=== PATIENT | female | born 1970 | race African-American/Black ===

== ENCOUNTER 2020-09-15 08:28 | Outpatient (CLI) | payer OTHER, SELFPAY ==
--- NOTE | ~2020-09-15 | CT_ITS ---
EXAMINATION: CT sinus wo con EXAM DATE: 09/15/2020 08:50 INDICATION: J32.9 - Chronic sinusitis, unspecified. Cough. TECHNIQUE: Spiral CT of the sinuses was acquired in the axial plane. Coronal and sagittal reformatte d images were also reviewed. The dose-length product (DLP) for this examination was 293.24 mGy-cm. Iterative reconstruction (ASIR) was used as dose reduction technique. There is no prior study for co mparison. FINDINGS: There are bilateral maxillary sinus window procedures and also probably middle turbinate r esections. Moderate bilateral ethmoid mucoperiosteal thickening, minimal in the right maxillary sin us inferiorly. There is bilateral maxillary and sphenoid sinus wall thickening indicating a prior hi story of chronic sinusitis. No air-fluid levels. There is mild rightward nasal septal deviation. Th e mastoid air cells and middle ears are well aerated. External auditory canals are patent. The or bits and visualized soft tissues are unremarkable. IMPRESSION: 1. Moderate ethmoid, minimal right maxillary nuchal periosteal thickening. 2. Patent maxillary sinus windows. Reviewed, dictated and finalized at location B.
== END 2020-09-15 08:29 | disposition home or self-care (01) ==
LOC: ANHIMG 08:29
PROVIDERS: PCP Family Medicine; Visit Provider Otolaryngology
DX: J32.2 Chronic ethmoidal sinusitis (principal)
CPT/HCPCS: 70486

== ENCOUNTER 2020-10-08 10:06 | Outpatient (CLI) | payer OTHER, SELFPAY ==
--- NOTE | 2020-10-08 10:15 | ECG_ITS ---
Measurements Intervals [place] Rate: 86 P: 69 MI: 157 QRS: -2 QRSD: 85 T: 29 QT: 389 QTc: 468 Interpretive Statements SINUS RHYTHM POSSIBLE LEFT ATRIAL ENLARGEMENT EARLY PRECORDIAL R/S TRANSITION BORDERLINE ECG Electronically Signed On 10-08-2020 19:21:02 CDT by Luis Enrique Bill D.O.
== END 2020-10-08 10:07 | disposition home or self-care (01) ==
PROVIDERS: PCP Family Medicine; Visit Provider Anesthesiology
DX: I10 Essential (primary) hypertension (principal); Z01.818 Encounter for other preprocedural examination; R94.31 Abnormal electrocardiogram [ECG] [EKG]
CPT/HCPCS: 93005

== ENCOUNTER 2020-10-11 02:32 | Day surgery (SDC) | payer OTHER, SELFPAY ==
[2020-09-29 13:33] VITALS: BMI 45.4
--- NOTE | 2020-10-10 06:21 | PM.HPGS ---
History of Present Illness History of Present Illness Consent: Risks, benefits, and alternatives have been discussed and questions answered. Patient agrees to proceed with procedure. Chief complaint: nasal septal deviation Narrative: Yolie Larson is a 50 year old female has an inability to breathe out of her nose she has been treated with various courses of antibiotics and sinus medications Review of Systems Review of Systems: All systems reviewed & are unremarkable except as noted in HPI and below PMFSH Social History Social History (Updated 05/03/20 @ 09:56 by iSa Garcia, [facility]) Smoking status: Never smoker Second hand tobacco smoke exposure: No Alcohol intake: current Drinks per week: 3 Substance use: never Substance use type: does not use Additional living arrangements comments: LIVES WITH SIGNIFICANT OTHER Spiritual care concerns: No Meds Home Medications and Allergies Home Medications Medication Instructions Recorded Confirmed Type azelastine 137 mcg (0.1 %) nasal 1 spray INTRANASAL Q12H #30 ml 05/03/20 09/29/20 Rx spray aerosol carvedilol 12.5 mg BID 09/29/20 09/29/20 History clopidogrel 75 mg QAM 09/29/20 09/29/20 History hydroxychloroquine 200 mg QAM 09/29/20 09/29/20 History losartan 25 mg QAM 09/29/20 09/29/20 History Allergies Allergy/AdvReac Type Severity Reaction Status Date / Time naproxen Allergy Severe nausea Verified 09/29/20 13:27 gadobenic acid AdvReac Nausea and Verified 09/29/20 13:52 [From contrast - MRI] Vomiting-TOPICAL IODINE OK TO USE PER PT ibuprofen AdvReac NAUSEA AND Verified 09/29/20 13:27 VOMITING Exam Narrative: Exam Narrative: chest clear heart murmurs abdomen is soft extremities negative septum deviated with obstruction deviated markedly to the right Assessment and Plan Additional Plan plan septoplasty
[2020-10-11] VITALS (9 sets, daily range): BP systolic 132–153; BP diastolic 82–107; PULSE 79–98; RESP 12–18; TEMP 36.7–36.8; O2SAT 100
--- NOTE | 2020-10-11 06:13 | WPDHPUPDATE1 ---
History and Physical Update Update Date/Time: 10/11/20 06:13 History and Physical has been reviewed, including an updated exam of the patient. There are NO changes in the patient's condition. Risks, benefits, and alternatives have been discussed and questions answered. Patient agrees to proceed with procedure.
[2020-10-11] MEDS: ACETAMINOPHEN 500 MG TABLET 1000 MG PO (06:41)
[2020-10-11] MEDS: LACTATED RINGERS 1,000 ML 30 ML IV CONT ×2 (06:42→09:04)
--- NOTE | 2020-10-11 07:06 | P.PNAN_ITS ---
Anes - Initial Pre Proc Eval Procedure: Operation Date: 10/11/20 07:45 Proposed Procedures p Septoplasty - Danilo Bah MD Date/Time: 10/11/20 07:06 Surgeon: Danilo Bah MD Pre Op Diagnosis: nasal septal deviation Patient Data Age: 50 Gender: F Height: 1.6 m Weight: 116.36 kg Allergies Allergy/AdvReac Type Severity Reaction Status Date / Time naproxen Allergy Severe nausea Verified 09/29/20 13:27 gadobenic acid AdvReac Nausea and Verified 09/29/20 13:52 [From contrast - MRI] Vomiting-TOPICAL IODINE OK TO USE PER PT ibuprofen AdvReac NAUSEA AND Verified 09/29/20 13:27 VOMITING Home Medications Medication Instructions Recorded Confirmed Type azelastine 137 mcg (0.1 %) nasal 1 spray INTRANASAL Q12H #30 ml 05/03/20 09/29/20 Rx spray aerosol carvedilol 12.5 mg BID 09/29/20 09/29/20 History clopidogrel 75 mg QAM 09/29/20 09/29/20 History hydroxychloroquine 200 mg QAM 09/29/20 09/29/20 History losartan 25 mg QAM 09/29/20 09/29/20 History Patient hx anesthesia problems: none Family hx anesthesia problems: none [facility] Past Medical History Medical History (Updated 10/11/20 @ 07:07 by Nash Cabrales MD) GERD (gastroesophageal reflux disease) Hypertension MEMO (obstructive sleep apnea) scheduled for sleep study October Social History Social History (Updated 05/03/20 @ 09:56 by Sia Garcia CMA) Smoking status: Never smoker Second hand tobacco smoke exposure: No Alcohol intake: current Drinks per week: 3 Substance use: never Substance use type: does not use Additional living arrangements comments: LIVES WITH SIGNIFICANT OTHER Spiritual care concerns: No Anes - Eval Final PreProcedure Day of Procedure 10/11/20 07:06 Patient weight: morbidly obese Heart: regular rate and rhythm Lungs: clear to auscultation Airway: Mallampati scale class III Neurological: alert and oriented Last oral intake: >/= 8 hours ASA classification: III Emergent: no Anesthetic plan: proceed Anesthesia type and monitoring: general ETT and standard monitoring Informed Consent: The patient's anesthetic plan and its attendant risks and benefits were discussed with the patient/family/POA. Questions were solicited and answers provided to the satisfaction of the patient/family/POA.
[2020-10-11] MEDS: OXYMETAZOLINE HCL 0.05% NAS 15 ML BTL (*BKC) 1 SPRAY NASAL (08:17)
[2020-10-11] MEDS: LIDO 1%/EPINEPHRINE 1:100,000 20 ML VIAL 30 ML INFILTRATE (08:18)
--- NOTE | 2020-10-11 08:30 | W.PM.PROC2 ---
Procedure Note - Detailed Date of Procedure 10/11/20 Pre-op Diagnosis nasal septal deviation Post-op Diagnosis same Procedure Performed Septoplasty Surgeon Danilo Bah MD Anesthesia general Description of Procedure patient was prepped and draped fashion general anesthesia the septum was injected xylocaine with adrenaline and packed with Afrin impregnated cottonoids there is a little bit more bleeding than normally encountered she has a history of Plavix in the past a left hemitransfixion was made anterior and posterior tunnels elevated the bony cartilage junction right posterior elevated consider exceptionally amount of bleeding at this point the procedure was terminated incision closed with 4 0 chromic Whitt splints sutured with 2 0 silk and nasal support sponges placed on each side of the nose Estimated Blood Loss 150 Packing Yes Pathology none sent Complications None Condition stable Disposition same day
[2020-10-11] MEDS: fentaNYL CITRATE INJ (*CRX) 100 MCG/2 ML VIAL 25 MCG IV PUSH ×8 (08:33→09:10)
--- NOTE | 2020-10-11 09:16 | W.PM.PROC2 ---
Procedure Note - Detailed Date of Procedure 10/12/20 Pre-op Diagnosis nasal septal deviation Post-op Diagnosis same Procedure Performed nasal septoplasty Surgeon Danilo Bah MD Anesthesia general Estimated Blood Loss 150
[2020-10-11] MEDS: oxyCODONE HCL (*CRX) 5 MG TAB IR PO (09:37)
--- NOTE | 2020-10-11 10:41 | SUR.PHASEII ---
PT HAD A PREVIOUS HAIR REMOVAL WOUND ON HER ABDOMEN THAT BROKE OPEN WHILE GOING TO BATHROOM. REPLACED HOME BANDAGE WITH 4X4 AND MEDIPORE TAPE.
== END 2020-10-11 10:30 | disposition home or self-care (01) ==
PROVIDERS: PCP Family Medicine; Visit Provider Otolaryngology
PROC: (CPT 30520; principal; 2020-10-11 07:45)
DX: J34.2 Deviated nasal septum (principal); I10 Essential (primary) hypertension; G47.33 Obstructive sleep apnea (adult) (pediatric); K21.9 Gastro-esophageal reflux disease without esophagitis; E66.01 Morbid (severe) obesity due to excess calories; Z68.43 Body mass index [BMI] 50.0-59.9, adult; Z79.02 Long term (current) use of antithrombotics/antiplatelets
CPT/HCPCS: 30520; A9270; J0330; J1100; J2250; J2405; J2704; J3010; J7120